=== PATIENT | male | born 1950 | race Caucasian/White ===

== ENCOUNTER 2022-03-09 09:13 | Emergency (ER) | payer MEDICARE, OTHER ==
[~2022-03-09] VITALS: Ht 175.3 cm; Wt 127.0 kg
[2022-03-09] MEDS ORDERED: LORTAB 1010 MG PO (10:51)
[2022-03-09] MEDS ORDERED: ALLOPURINOL100 MG PO (10:51)
[2022-03-09] MEDS ORDERED: NAPROXEN500 MG PO (10:51)
[2022-03-09 11:10] VITALS: BP 143/71
== END 2022-03-09 11:17 | disposition home or self-care (01) ==
LOC: ED 09:13
DX: M10.072 Idiopathic gout, left ankle and foot (principal)

== ENCOUNTER 2024-03-03 09:06 | Emergency (ER) | payer MEDICARE, OTHER ==
[~2024-03-03] VITALS: Ht 175.3 cm; Wt 115.0 kg
[~2024-03-03 09:06] MED LIST: ALLOPURINOL100 MG PO; LORTAB 1010 MG PO; NAPROXEN500 MG PO
[2024-03-03] MEDS ORDERED: METOPROL TAR25 MG PO (09:19)
[2024-03-03] MEDS ORDERED: ASPIRIN81 MG PO (09:20)
[2024-03-03] MEDS ORDERED: SINEMET 25/1001 TA1 PO (09:20)
[2024-03-03 09:38] LABS: URINE BLOOD DIPSTICK Negative (NEGATIVE); URINE GLUCOSE - DIPSTICK Negative (NEGATIVE); URINE KETONE 15 mg/dL (NEGATIVE); URINE LEUK ESTERASE Negative (NEGATIVE); URINE NITRITE - DIPSTICK Negative (Negative); URINE PROTEIN - DIPSTICK 30 mg/dL (NEG-TRACE)
[2024-03-03 09:40] LABS: URINE COLOR Yellow
[2024-03-03 09:43] LABS: URINE EPITHELIAL CELLS FEW EPI/hpf (0-FEW); URINE MUCUS MODERATE hpf (NONE-FEW)
[2024-03-03] MEDS ORDERED: PAXLOVID PO ×2 (10:03→10:45)
[2024-03-03 10:06] VITALS: BP 141/87
== END 2024-03-03 10:13 | disposition home or self-care (01) ==
LOC: ED 09:06
PROVIDERS: Family Medicine
DX: U07.1 COVID-19 (principal); R05.9 Cough, unspecified; R52 Pain, unspecified